=== PATIENT | male | born 1965 | race Caucasian/White ===

== ENCOUNTER 2022-09-12 20:38 | Emergency (ER) | payer MEDICAID ==
[~2022-09-12] VITALS: Ht 170.2 cm; Wt 61.4 kg
[2022-09-13] MEDS ORDERED: BENZ-38 PO (00:25)
[2022-09-13 00:49] VITALS: BP 142/81
== END 2022-09-13 00:54 | disposition home or self-care (01) ==
LOC: ER 20:38
DX: R05.9 Cough, unspecified (principal); R09.89 Other specified symptoms and signs involving the circulatory and respiratory systems
CPT/HCPCS: 71045; 99283